=== PATIENT | male | born 1995 | race Caucasian/White ===

== ENCOUNTER 2019-09-27 08:05 | Emergency (ER) | payer OTHER, BC, SELFPAY ==
[2019-09-27 08:25] VITALS: BP 110/60; PULSE 50; RESP 16; TEMP 37.3; O2SAT 100
--- NOTE | 2019-09-27 08:31 | ED.WOUNDLAC ---
HPI - Wound/Laceration General Chief Complaint: Wound/Laceration Stated Complaint: Dog bite right wrist Time Seen by Provider: 09/27/19 08:32 Source: patient Mode of arrival: ambulatory Limitations: no limitations History of Present Illness HPI narrative: Tal Guadalupe is a 23 yo male with no PMH is here for dog bite that occurred yesterday afternoon. small scratches to R wrist, bruising base of thumb Related Data Allergies Allergy/AdvReac Type Severity Reaction Status Date / Time No Known Allergies Allergy Verified 09/27/19 08:37 Review of Systems Review of Systems: Narrative: CONSTITUTIONAL: Denies fever, chills, sweats. EYES: Denies visual changes, redness, discharge. ENT: Denies rhinorrhea, congestion, sore throat, otalgia. CARDIOVASCULAR: Denies chest pain, palpitations, edema. RESPIRATORY: Denies dyspnea, wheezing, cough GASTROINTESTINAL: Denies abdominal pain, nausea, vomiting, diarrhea. GENITOURINARY: Denies dysuria, hematuria, abnormal discharge SKIN: Denies rash or itching. dog bite NEUROLOGIC: Denies numbness, or focal weakness. PSYCHIATRIC: Denies anxiety or depression. [facility] Family History Family History (Updated 09/27/19 @ 08:45 by Maria E Rg CNP) Other No acute medical problems Social History Social History (Updated 09/27/19 @ 08:45 by Maria E Rg CNP) Smoking status: Never smoker Alcohol intake: current Comments At time of signature, I agree with nursing past medical, surgical, social and family history. There is no relevant family history pertinent to the presenting complaint. Exam Narrative: Exam Narrative: GENERAL: This is a well-nourished, well-developed patient, in mild distress. HEAD: normocephalic, atraumatic. EYES: Sclera clear/white. Vision is grossly intact. EARS: External ears normal, Hearing grossly intact. NOSE: External nose normal without nasal discharge, nares without redness, no rhinorrhea. THROAT: Mucous membranes moist, posterior pharynx NECK: Neck supple, non-tender CARDIOVASCULAR: Regular rate and rhythm without murmurs, gallops, or rubs. RESPIRATORY: Clear to auscultation. Breath sounds equal bilaterally. No wheezes, rales, or rhonchi. GASTROINTESTINAL: Abdomen soft, non-tender, SKIN: warm, intact with no suspicious lesions or rash, good texture and turgor. Small scratch to lateral right wrist with bruising tpo base R thumb NEURO: awake, alert, and oriented to person, place and time. There were no obvious focal neurologic abnormalities. Steady gait EXTREMITIES: Normal range of motion. BACK: Nontender without deformity Course Course Emergency Course: Wound cleaned, started on Augmentin, given tetanus injection Plenty of rest letter for work Vital Signs Vital signs: Vital Signs Temperature 99.2 F 09/27/19 08:25 Pulse Rate 50 L 09/27/19 08:25 Respiratory Rate 16 09/27/19 08:25 Blood Pressure 110/60 09/27/19 08:25 Pulse Oximetry 100 09/27/19 08:25 Temperature 99.2 F 09/27/19 08:25 Pulse Rate 50 L 09/27/19 08:25 Respiratory Rate 16 09/27/19 08:25 Blood Pressure 110/60 09/27/19 08:25 Pulse Oximetry 100 09/27/19 08:25 MDM - Wound/Laceration Differential Diagnosis Differential diagnosis: Likely laceration and other (dog bite) Discharge Plan Discharge Clinical Impression: Dog bite of hand Qualifiers: Encounter type: initial encounter Laterality: right Qualified Code(s): S61.451A - Open bite of right hand, initial encounter Patient Disposition: Home, Self-Care Condition: Stable Instructions: Animal Bite (ED) Prescriptions: New amoxicillin-pot clavulanate [Augmentin] 875-125 mg tablet 1 tablet PO Q12H Qty: 20 RF: 0 Follow-up/Referrals: Eugenio,Stephen Acuña MD [Primary Care Provider] - Stand Alone Forms: Work/School Release IP Time of Disposition: 08:53 Discharge Date/Time: 09/27/19 09:32
[2019-09-27] MEDS: TETANUS,DIPHTHERIA,AC PERTUSSIS ADULT (0.5 ML) BOOSTRIX IM (09:05)
--- NOTE | 2019-09-27 09:45 | PC.NURSE ---
0932 PT GIVEN BOOSTRIX, INCORRECT ORDER FOR TETANUS STOPPED PER ASHER SHEETS NP.
== END 2019-09-27 09:32 | disposition home or self-care (01) ==
PROVIDERS: Emergency Provider Nurse Practitioner; PCP Internal Medicine
DX: S61.451A Open bite of right hand, initial encounter (principal); W54.0XXA Bitten by dog, initial encounter
CPT/HCPCS: 90471; 90715; 99213; G0463

== ENCOUNTER 2020-03-03 13:58 | Emergency (ER) | payer OTHER, BC, SELFPAY ==
--- NOTE | 2020-03-03 14:00 | ED.GENADULT ---
HPI - General Adult General Chief complaint: Wound/Laceration Stated complaint: left hand lac Time Seen by Provider: 03/03/20 14:00 Source: patient Mode of arrival: ambulatory Limitations: no limitations History of Present Illness HPI narrative: 24-year-old male patient presents to the [facility] with complaints of a laceration to the left hand. Patient states he was putting in a window and accidentally cut himself with a putty knife. Patient states his last tetanus was about 6 months ago he got bit by a dog. Patient denies taking anything for pain prior to arrival. Patient states that the laceration happened approximately 1 hour prior to arrival. Related Data Allergies Allergy/AdvReac Type Severity Reaction Status Date / Time No Known Allergies Allergy Verified 03/03/20 14:37 Review of Systems Review of Systems: Narrative: CONSTITUTIONAL: Denies fever, chills, or sweats. EYES: Denies visual changes, redness, or discharge. ENT: Denies rhinorrhea, congestion, sore throat, or otalgia. CARDIOVASCULAR: Denies chest pain, palpitations, or edema. RESPIRATORY: Denies cough or dyspnea. GASTROINTESTINAL: Denies abdominal pain, nausea, vomiting, or diarrhea. GENITOURINARY: Denies dysuria or hematuria. SKIN: Denies rash or itching. Positive laceration to left hand MUSCULOSKELETAL: Denies back pain, joint pain, or myalgia. NEUROLOGIC: Denies headache, numbness, or weakness. PSYCHIATRIC: Denies anxiety or depression. PMFSH Past Medical History Medical History (Updated 03/03/20 @ 14:40 by LOUISE Beth) Pyloric stenosis Staph skin infection Required PICC line Surgical History Surgical History (Updated 03/03/20 @ 14:16 by LOUISE Beth) Hx of cholecystectomy Family History Family History Other No acute medical problems Social History Social History Smoking status: Never smoker Alcohol intake: current Comments At the time of my signature I agree with nursing past medical history, surgical, social, and family history. There is no relevant family history pertinent to the presenting complaint. Exam Narrative: Exam Narrative: GENERAL: Well-appearing, well-nourished, and in no acute distress. HEAD: Normocephalic, atraumatic. EYES: PERRLA and EOMI. ENT: Nares clear, no rhinorrhea or epistaxis. Mucous membranes moist. NECK: Supple. No lymphadenopathy CHEST: Clear to auscultation. No respiratory distress. HEART: Regular rate and rhythm. No murmur heard. Normal peripheral pulses. ABDOMEN: Soft, nontender, nondistended, normal active bowel sounds. EXTREMITIES: Normal range of motion. No edema. SKIN: Warm, dry, no rash. Patient has approximately 1 cm open laceration noted to the left hand on lateral palm side over the 5th metacarpal. No active bleeding noted. No obvious foreign bodies or deep tendon injury noted. Patient has excellent range of motion to the hand and fingers. NEURO: No focal deficits. Alert and oriented x3. Course Vital Signs Vital signs: Vital Signs Temperature 36.7 C 03/03/20 14:09 Pulse Rate 60 03/03/20 14:09 Respiratory Rate 20 03/03/20 14:09 Blood Pressure 112/60 03/03/20 14:09 Pulse Oximetry 100 03/03/20 14:09 Temperature 36.7 C 03/03/20 14:09 Pulse Rate 60 03/03/20 14:09 Respiratory Rate 20 03/03/20 14:09 Blood Pressure 112/60 03/03/20 14:09 Pulse Oximetry 100 03/03/20 14:09 Vital signs reviewed. Procedures Laceration Laceration 1: Date: 03/03/20 Time: 14:43 Site: hand Side (If applicable): left Size (cm): 1 Description: linear Depth: simple, single layer Local Anesthetic: lidocaine 1% Amount of anesthesia used (mL): 2 ====== Skin Level ====== Skin layer closed with: vicryl Size (cm): 5-0 Number of sutures: 2 Technique: simple, inter
[2020-03-03 14:09] VITALS: BP 112/60; PULSE 60; RESP 20; TEMP 36.7; O2SAT 100
== END 2020-03-03 14:37 | disposition home or self-care (01) ==
PROVIDERS: Emergency Provider Nurse Practitioner Family; PCP Internal Medicine
DX: S61.412A Laceration without foreign body of left hand, initial encounter (principal); W27.8XXA Contact with other nonpowered hand tool, initial encounter; Z86.19 Personal history of other infectious and parasitic diseases
CPT/HCPCS: 12001; 99213; G0463

== ENCOUNTER 2020-03-11 17:01 | Emergency (ER) | payer OTHER, SELFPAY ==
--- NOTE | 2020-03-11 17:04 | ED.GENADULT ---
HPI - General Adult General Chief complaint: Wound/Laceration Stated complaint: remove stitches Time Seen by Provider: 03/11/20 17:04 Source: patient Mode of arrival: ambulatory Limitations: no limitations History of Present Illness HPI narrative: 24-year-old male patient presents to the [facility] for request for suture removal from left hand that he had put in about 8 days ago. Patient states he has been cleaning the wound with soap and water. Denies any discharge, swelling or increased pain to the area. Related Data Home Medications Medication Instructions Recorded Confirmed No Home Medications 03/11/20 03/11/20 Allergies Allergy/AdvReac Type Severity Reaction Status Date / Time No Known Allergies Allergy Verified 03/11/20 17:11 Review of Systems Review of Systems: Narrative: CONSTITUTIONAL: Denies fever, chills, or sweats. EYES: Denies visual changes, redness, or discharge. ENT: Denies rhinorrhea, congestion, sore throat, or otalgia. CARDIOVASCULAR: Denies chest pain, palpitations, or edema. RESPIRATORY: Denies cough or dyspnea. GASTROINTESTINAL: Denies abdominal pain, nausea, vomiting, or diarrhea. GENITOURINARY: Denies dysuria or hematuria. SKIN: Denies rash or itching. Positive laceration to left hand MUSCULOSKELETAL: Denies back pain, joint pain, or myalgia. NEUROLOGIC: Denies headache, numbness, or weakness. PSYCHIATRIC: Denies anxiety or depression. PMFSH Past Medical History Medical History Pyloric stenosis Staph skin infection Required PICC line Surgical History Surgical History Hx of cholecystectomy Family History Family History Other No acute medical problems Social History Social History Smoking status: Never smoker Alcohol intake: current Exam Narrative: Exam Narrative: GENERAL: Well-appearing, well-nourished, and in no acute distress. HEAD: Normocephalic, atraumatic. EYES: PERRLA and EOMI. ENT: Nares clear, no rhinorrhea or epistaxis. Mucous membranes moist. NECK: Supple. No lymphadenopathy CHEST: Clear to auscultation. No respiratory distress. HEART: Regular rate and rhythm. No murmur heard. Normal peripheral pulses. ABDOMEN: Soft, nontender, nondistended, normal active bowel sounds. EXTREMITIES: Normal range of motion. No edema. SKIN: Warm, dry, no rash. Patient has [address] to a laceration on the left hand on the lateral side underneath the fifth metacarpal. No swelling, erythema or discharge from site. No warmth to touch. Patient has excellent range of motion to the finger and pain. NEURO: No focal deficits. Alert and oriented x3. Course Vital Signs Vital signs: Vital Signs Temperature 36.6 C 03/11/20 17:05 Pulse Rate 59 L 03/11/20 17:05 Respiratory Rate 14 03/11/20 17:05 Blood Pressure 115/69 03/11/20 17:05 Pulse Oximetry 100 03/11/20 17:05 Temperature 36.6 C 03/11/20 17:05 Pulse Rate 59 L 03/11/20 17:05 Respiratory Rate 14 03/11/20 17:05 Blood Pressure 115/69 03/11/20 17:05 Pulse Oximetry 100 03/11/20 17:05 Vital signs reviewed. Procedures Other Procedure Procedure 1: Other Procedure: 2 sutures removed from patient's left hand with tweezers and scissors. Antibiotic ointment and Band-Aid was applied. Patient tolerated procedure well. Medical Decision Making Differential Diagnosis Differential Diagnosis: Differential diagnosis: Abscess, cellulitis, hidradenitis, laceration, puncture wound. Vital Signs Vital Signs: Vital Signs Temperature 36.6 C 03/11/20 17:05 Pulse Rate 59 L 03/11/20 17:05 Respiratory Rate 14 03/11/20 17:05 Blood Pressure 115/69 03/11/20 17:05 Pulse Oximetry 100 03/11/20 17:05 Temperature 36.6 C 03/11/20 17:05 Pulse Rate 59 L 10/1
[2020-03-11 17:05] VITALS: BP 115/69; PULSE 59; RESP 14; TEMP 36.6; O2SAT 100
== END 2020-03-11 17:20 | disposition home or self-care (01) ==
PROVIDERS: Emergency Provider Nurse Practitioner Family; PCP Internal Medicine
DX: S61.412D Laceration without foreign body of left hand, subsequent encounter (principal); X58.XXXD Exposure to other specified factors, subsequent encounter; Z86.19 Personal history of other infectious and parasitic diseases
CPT/HCPCS: 99211; G0463